=== PATIENT | female | born 1985 | race Caucasian/White ===

== ENCOUNTER 2016-05-26 14:30 | Emergency (ER) | payer SELFPAY ==
[~2016-05-26 14:30] MED LIST: CIPR500T2 PO; LAMO100 PO; Z.0.BCPILL PO
[2016-05-26 14:32] VITALS: BP 132/63; PULSE 85; RESP 12; TEMP 98.5; O2SAT 100
== END 2016-05-26 15:24 | disposition left against medical advice (07) ==
LOC: NED 14:30
DX: R09.89 Other specified symptoms and signs involving the circulatory and respiratory systems (principal)
CPT/HCPCS: 99281

== ENCOUNTER 2016-08-01 22:56 | Emergency (ER) | payer SELFPAY ==
[~2016-08-01] VITALS: Ht 170.2 cm; Wt 78.0 kg
[2016-08-01 23:00] VITALS: BP 118/67; PULSE 81; RESP 16; TEMP 98.9; O2SAT 100
[2016-08-01] MEDS ORDERED: SUMA4INJ4 SQ (23:14)
[2016-08-01] MEDS ORDERED: SUMA100T2 PO (23:14)
[2016-08-01] MEDS ORDERED: LAMI200T2 PO (23:14)
--- NOTE | 2016-08-01 23:25 | PD ---
HPI Chief Complaint: Injury Time Seen by Provider: 23:24 Travel History International Travel<30 days: No Contact w/Intl Traveler<30days: No Traveled to known affect area: No History of Present Illness HPI 31 YO right-hand dominant female presents to the ED for evaluation of 2.5 month history of right hand pain. Onset after she punched a videogame punching bag. Patient states that the second and third knuckles are achy and occasionally swell. She states that the pain sometimes shoots into the wrist. She denies numbness, tingling, limitations to range of motion. 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 No treatment attempt at home. Denies chronic health problems and takes a daily medications. NKDA. PFSH Past Medical History Genitourinary: Yes (HX OF FREQUENT UTI'S) Kidney Stones: Yes Seizures: Yes Social History Alcohol Use: Yes (Occ) Tobacco Use: No Substance Use: Yes (Marijuana) Allergies-Medications (Allergen,Severity, Reaction): Coded Allergies: No Known Allergies (Verified , 08/15/09) Reported Meds & Prescriptions Reported Meds & Active Scripts Active Ibuprofen 800 Mg Tab 800 Mg PO Q8H Reported Sumatriptan Inj (Sumatriptan Succinate) 4 Mg/0.5 Ml Inj 4 Mg SQ ONCE PRN May repeat dose in 1 hour if needed. Sumatriptan (Sumatriptan Succinate) 100 Mg Tab 100 Mg PO ONCE PRN If a satisfactory response has not been obtained at 2 hours, a second dose may be administered Lamictal XR (Lamotrigine) 200 Mg Bailey 200 Mg PO DAILY Review of Systems Except as stated in HPI: all other systems reviewed are Neg Physical Exam Narrative GENERAL: Well-nourished, well-developed white female in no acute distress. SKIN: Focused skin assessment warm/dry. HEAD: Normocephalic. EYES: No scleral icterus. No injection or drainage. NECK: Supple, trachea midline. No JVD or lymphadenopathy. CARDIOVASCULAR: Regular rate and rhythm without murmurs, gallops, or rubs. RESPIRATORY: Breath sounds equal bilaterally. No accessory muscle use. GASTROINTESTINAL: Abdomen soft, non-tender, nondistended. MUSCULOSKELETAL: No cyanosis, or edema. FOCUSED RIGHT UPPER EXTREMITY EXAM: 2+ radial pulse. Tender to palpation of the MP joints of the second and third digits. Patient retains full, active range of motion. Strong finger to thumb opposition on each digit. Sensation intact to light touch distally. Cap refill less than 2 seconds. BACK: Nontender without obvious deformity. No CVA tenderness. Data Data Last Documented VS Vital Signs Date Time Temp Pulse Resp B/P Pulse Ox O2 Delivery O2 Flow Rate FiO2 08/01/16 23:00 98.9 81 16 118/67 100 Room Air Orders Hand, Complete ([id number]) (08/01/16 23:30) Ice/Cold Pack (08/01/16 23:30) Ibuprofen (Motrin) (08/01/16 23:30) MDM Medical Decision Making Medical Screen Exam Complete: Yes Emergency Medical Condition: Yes Differential Diagnosis Musculoskeletal pain versus contusion versus fracture versus osteoarthritis versus other Narrative Course 31 YO right-hand dominant female presents to the ED for evaluation of 2.5 month history of right hand pain. Onset after she punched a video game punching bag. Patient states that the second and third knuckles are achy and occasionally swell. She states that the pain sometimes shoots into the wrist. She denies numbness, tingling, limitations to range of motion. 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 No treatment attempt at home. Vitals reviewed. Focused right upper extremity exam reveals 2+ radial pulse. Tender to palpation of the MP joints of the second and third digits. Patient retains full, active range of motion of the extremity. Strong finger to thumb opposition in each digit. Sensation intact to light touch distally. Cap refill less than 2 seconds. Icepack was applied. Patient was administered 100 mg ibuprofen. X-ray normal per radiology read. This is contusion of the right hand. He was instructed to rest, ice, elevate the extremity, return to normal, gentle activity as tolerated. She is provided a brief course of anti- inflammatory medications. She is instructed to follow up with primary care provider or hand surgeon should symptoms persist. She indicated understanding of instructions and is agreeable a care plan. Patient is stable and discharged home. Diagnosis Primary Impression: Contusion of right hand including fingers Qualified Code: S60.221A - Contusion of right hand including fingers, initial encounter Referrals: Primary Care Physician Patient Instructions: Contusion in Adults (ED), General Instructions, Musculoskeletal Pain (ED) Departure Forms: Tests/Procedures, Work Release Special Instructions: No repetitive motion ( throttle manipulation) of the right hand for one week. Additional Instructions: Rest, ice, elevate the extremity. Apply ice no longer than 10-15 minutes per hour a few times a day. 800 mg ibuprofen up to 3 times a day to reduce pain and inflammation. Return to normal, gentle activity as tolerated. Follow up with hand surgery or your primary care provider. Return to the ED for any urgent or emergent medical condition. Med/Other Pt SpecificInfo: Prescription(s) given Scripts Ibuprofen 800 Mg [id number] Mg PO Q8H #15 TAB Ref 0 Prov:Zhou [place] MD 08/02/16 Disposition: 01 DISCHARGE HOME Condition: Stable Olivia Velasco Aug 01, 2016 23:25
[2016-08-01] MEDS ORDERED: IBUPROFEN 800 MG TAB PO ONE (23:30)
[2016-08-02] MEDS ORDERED: IBUP800T23 PO (00:06)
--- NOTE | 2016-08-02 00:08 | RADRPT ---
EXAM DATE/TIME: 08/01/2016 23:49 [facility] COMPARISON: No previous studies available for comparison. INDICATIONS : Right hand pain with no known trauma for over two months. 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 MEDICAL HISTORY : None. SURGICAL HISTORY : None. ENCOUNTER: Initial ACUITY: 2 months PAIN SCORE: 8/10 LOCATION: Right Hand FINDINGS: Three view examination of the right hand demonstrates no soft tissue swelling, dislocation, or fractu re. The carpal bones appear intact. The interphalangeal and metacarpophalangeal joints are intact. Bony mineralization is normal. CONCLUSION: Normal examination for a patient of this age. Niraj Peña MD on August 02, 2016 at 0:05 Board Certified Radiologist. This report was verified electronically.
== END 2016-08-02 01:12 | disposition home or self-care (01) ==
LOC: NEPD 22:56
DX: S60.221A Contusion of right hand, initial encounter (principal); Z87.442 Personal history of urinary calculi; Z87.440 Personal history of urinary (tract) infections; W22.8XXA Striking against or struck by other objects, initial encounter; Y93.C2 Activity, hand held interactive electronic device; Y92.9 Unspecified place or not applicable; Y99.8 Other external cause status
CPT/HCPCS: 73130; 99283

== ENCOUNTER 2017-06-26 16:48 | Emergency (ER) | payer MEDICAID ==
[~2017-06-26] VITALS: Ht 165.1 cm; Wt 87.0 kg
[~2017-06-26 16:48] MED LIST changes: -CIPR500T2 PO; +IBUP1TAB7 PO; +LAMI200T2 PO; -LAMO100 PO; +SUMA100T2 PO; +SUMA4INJ4 SQ; -Z.0.BCPILL PO
[2017-06-26 16:56] VITALS: BP 118/55; PULSE 88; RESP 18; TEMP 98.3; O2SAT 99
== END 2017-06-26 17:44 | disposition left against medical advice (07) ==
LOC: NED 16:48
DX: R10.9 Unspecified abdominal pain (principal)
CPT/HCPCS: 99281